=== PATIENT | female | born 1965 | race Caucasian/White ===

== ENCOUNTER 2023-12-17 19:03 | Emergency (ER) | payer BC, SELFPAY ==
[2023-12-17 19:07] VITALS: BP 136/90
[2023-12-17 20:03] VITALS: BMI 36.8
[2023-12-17 20:08] VITALS: BP 137/88
--- NOTE | 2023-12-17 20:52 | ED.GENMED ---
History of Present Illness
General
Chief Complaint: Facial Problem
Source: patient
Time Seen by Provider: 12/17/23 20:13
History of Present Illness
History of Present Illness:
58yoF with a history of hypertension, hyperlipidemia, primary biliary cholangitis presenting with her for evaluation of a facial droop. Patient initially started having discomfort in her right upper posterior molar about 8 days ago. She was
seen by her dentist and was told that she cracked her tooth. She started to have worsening symptoms over the past few days and 'did not feel right.' She was sent in a prescription for amoxicillin which she started yesterday. She reports pain in near
the angle of her R jaw. She also reports paresthesias in her right maxillary region which feels like she received a Novocaine injection. She was speaking with her family member today who noticed a R facial and eye droop so she decided to come to the
ED. She denies any dizziness, visual changes, weakness, headache. No weakness or paresthesias in the extremities.
Past History
Past History
ED Past Medical History: None
ED Past Surgical History: None
Patient has exhibited threatening behavior?: No
Phy Exam
General Physical Exam
General Presentation: well appearing and no apparent distress
General age: appears stated age
General Skin: warm and dry
General Habitus: normal
General Mental: alert
ENT Exam
ENT Exam: TM's normal, pharynx normal, neck supple, normocephalic and other (+Tenderness to R upper posterior molar. No periapical abscess or overlying facial swelling. )
Neurological Exam
Neurological Exam: other (Facial asymmetry noted with inability to completely close R eye, R eyebrow sagging, and flattening of nasolabial fold. PERRL. EOMs intact. 5/5 strength and gross sensation intact in all extremities. Negative drift x4.
Normal finger to nose and heel to jaime bilaterally. )
Skin Exam
Skin Exam: normal color and warm/dry
Psychiatric Exam
Psychiatric Exam: normal mood/affect
Course
Orders/Labs/Results
Orders:
Orders
12/17/23 20:43
CT Facial Bones W/ Iv Contrast Urgent
Comment:
Reason For Exam: R upper dental pain
12/17/23 20:55
Complete Blood Count/With Diff Urgent
Comprehensive Metabolic Panel Urgent
Lyme Progressive Urgent
12/17/23 22:58
Prednisone [Deltasone] 60 mg PO ONCE ONE
12/17/23 22:59
Valacyclovir HCl [Valtrex] 1,000 mg PO ONCE ONE
Abnormal Lab Results
12/17/23
20:55
Absolute Monos (auto) 0.7 H 10^3/uL
(0.1-0.6)
BUN 19 H mg/dl
(7-17)
AST 37 H U/L
(14-36)
ALT 41 H U/L
(0-35)
12/17/23 20:55
12/17/23 20:55
Vital Signs
Initial and Last Documented VS:
Initial Vital Signs
Temp Pulse Resp BP Pulse Ox
98.9 F 76 16 136/90 97
12/17/23 19:07 12/17/23 19:07 12/17/23 19:07 12/17/23 19:07 12/17/23 19:07
Last Documented Vital Signs
Temp Pulse Resp BP Pulse Ox
98.9 F 76 16 124/94 95
12/17/23 19:07 12/17/23 19:07 12/17/23 19:07 12/17/23 22:10 12/17/23 22:45
MDM/Problems Addressed
Differential Diagnosis Includes:
58yoF here with R facial droop that family member noticed today. Also c/o R upper dental pain and pain in the jaw region. She is currently on amoxicillin. VSS. No facial swelling or periapical abscess noted on exam. R facial asymmetry noted
affecting both upper and lower face. Patient unable to completely close R eye. No other neuro deficits noted. Differential diagnosis includes but is not limited to: [place] palsy, dental infection, Lyme disease, early shingles
Initial ED plan: Check CBC, CMP, and Lyme testing. Will check CT facial bones to r/o any abscess that may be impinging a nerve.
*Critical Care Note
Total Time (30-74mins, 75-104mins- exclusive of procedures): Not Applicable
Update Note
Update Note:
Labs reveal a mild transaminitis but blood work otherwise unremarkable. CT shows periapical lucency of one of R maxillary molars but no visualized abscess. Clinical presentation is consistent with [place] palsy. Doubt CVA as upper face is affected and
remainder of neuro exam is normal. She was started on a course prednisone and Valtrex. Advised artificial tears and eye patching at nighttime for the affected eye. Advised close f/u with PCP and ED return precautions discussed. She expressed
understanding and is agreeable to plan. She was discharged in stable condition.
ED Attending Note
-
Portions of this chart may have been created with voice recognition software.� Occasional wrong word or��sound alike� substitutions may have occurred due to the inherent limitations of voice recognition software.
Discharge Plan
Departure
Patient Disposition: Home (Routine Discharge)
Date of Disposition: 12/17/23
Time of Disposition: 22:57
Patient with high blood pressure during this ER visit?: No
Discharge Problem:
Paz's palsy
Instructions: Paz's Palsy (DC)
Prescriptions:
New
prednisone 20 mg tablet
60 mg PO DAILY Qty: 18 0RF
valacyclovir [Valtrex] 1 gram tablet
1,000 mg PO Q8H 7 Days Qty: 20 0RF
No Action
valsartan 80 MG tablet
80 mg PO HS
atorvastatin 10 MG tablet
10 mg PO QPM
cholecalciferol (vitamin D3) [Vitamin D3] 1,000 UNIT capsule
1,000 units PO HS Qty: 0
Iron
65 mg PO HS
hydrocodone-acetaminophen [Fortuna] 1 EACH tablet
1 ea PO Q6HPRN PRN (Reason: pain) 10 Days Qty: 30 0RF
lorazepam 0.5 MG tablet
0.5 mg PO Q4HPRN PRN (Reason: prn pain/spams) Qty: 40 0RF
Referrals:
Alexandre Mack DO [Family Provider] -
Activity Restrictions/Additional Instructions:
Take prednisone and Valtrex as prescribed. Use artificial tears in the right eye and an eye patch at nighttime.
Please call your family doctor on Wednesday to schedule a follow-up appointment. Return to the ER with any new or worsening symptoms.
Interventions
Interventions:
*Risk Screen - Suicide Last Done: 12/17/23 20:03
*General Assessment Last Done: 12/17/23 20:03
*Neglect/Abuse Screening Last Done: 12/17/23 20:03
ED- Fall Risk Assessment Last Done: 12/17/23 20:03
*ED COVID-19 Vaccine History Last Done: 12/17/23 20:03
*Nursing Disposition Last Done: 12/17/23 23:14
ED- Neurological Assessment Last Done: 12/17/23 20:03
ED-Skin Assessment Last Done: 12/17/23 20:03
Discharge Date and Time
Discharge Date/Time: 12/17/23 23:15
Print Language: FINNISH
[2023-12-17 21:00] VITALS: BP 106/61
[2023-12-17 21:02] LABS: % Basophils 1.3 % (0-2); % Eosinophils 2.9 % (0-6); % Immature Granulocytes 0.3 % (0-0.5); % Lymphocytes 38.3 % (20.5-51.1); % Monocytes 8.8 % (1.7-9.3); % Neutrophils 48.4 % (42.2-75.2); Absolute Basophils 0.1 10^3/uL (0-0.2); Absolute Eosinophils 0.2 10^3/uL (0-0.7); Absolute Lymphocytes 2.9 10^3/uL (1.2-3.4); Absolute Monocytes 0.7 10^3/uL (0.1-0.6); Absolute Neutrophils 3.6 10^3/uL (1.4-6.5); Hematocrit 41.5 % (37.0-47.0); Hemoglobin 14.3 g/dL (12.0-16.0); Mean Corp Hgb Conc. 34.5 g/dL (33.0-37.0); Mean Corpuscular Hgb 30.5 pg (27.0-31.0); Mean Corpuscular Volume 88.5 fL (81.0-99.0); Mean Platelet Volume 9.3 fL (7.4-10.4); Nucleated Red Blood Cells % 0 %; Platelet Count 287 10^3/uL (130-400); Red Blood Cell Count 4.69 10^6/uL (4.20-5.40); White Blood Cell Count 7.5 10^3/uL (4.8-10.8)
[2023-12-17 21:17] LABS: ALT (SGPT) 41 U/L (0-35); AST (SGOT) 37 U/L (14-36); Albumin 4.7 g/dl (3.5-5.0); Alkaline Phosphatase 92 U/L (38-126); Blood Urea Nitrogen 19 mg/dl (7-17); Carbon Dioxide 30 mmol/L (22-30); Chloride 101 mmol/L (98-107); Estimated Creatinine Clearance 70 ml/min; Glucose 97 mg/dl (70-99); Sodium 144 mmol/L (135-145); Total Bilirubin 0.6 mg/dl (0.2-1.3); Total Protein 7.3 g/dl (6.3-8.2); eGFR > 60.00
[2023-12-17 22:10] VITALS: BP 124/94
[2023-12-17] MEDS: VALTREX 1000 MG PO (23:11)
[2023-12-17] MEDS: DELTASONE 60 MG PO (23:11)
[2023-12-20 16:21] LABS: Lyme Antibody Screen, EIA Negative (Negative)
== END 2023-12-17 23:15 | disposition home or self-care (01) ==
LOC: EMR 19:03
PROVIDERS: Physician Assistant; EMERGENCY PHYSICIAN Emergency Medicine; FAMILY PHYSICIAN Family Medicine
DX: G51.0 Bell's palsy (principal); I10 Essential (primary) hypertension; E78.00 Pure hypercholesterolemia, unspecified; K74.3 Primary biliary cirrhosis
CPT/HCPCS: 99284; 70487; 80053; 85025; 86618; Q9967